=== PATIENT | male | born 1940 | race Caucasian/White ===

== ENCOUNTER 2023-05-01 18:24 | Inpatient (IN) | payer OTHER, SELFPAY ==
--- NOTE | ~2023-05-01 | XR_ITS ---
EXAM: XR hip LT 2V w AP pelvis DATE: 05/01/2023 18:55 HISTORY: Fall, Possible Fracture From Outside Hosptial . COMPARISON: None available. FINDINGS: Normal mineralization. Minimally displaced left femoral neck fracture. No lytic or blastic lesion. Lumbar degenerative disc disease. Mild degenerative change in the bilateral hips and pubic s ymphysis. Pelvic calcification, possible calcified diverticulum. No erosion or periosteal change. Sof t tissues within normal limits. IMPRESSION: Minimally displaced left femoral neck fracture. Reviewed, dictated and finalized at location K.
--- NOTE | ~2023-05-01 | XR_ITS ---
EXAM: XR hip LT min 2V DATE: 05/04/2023 15:27 HISTORY: POST OP . COMPARISON: 05/01/2023. FINDINGS/IMPRESSION: Expected postsurgical changes, status post left hip arthroplasty placement, with no radiographic evidence of procedure or hardware related complication. Reviewed, dictated and finalized at location K.
--- NOTE | ~2023-05-01 | XR_ITS ---
EXAMINATION: XR chest 1V portable Exam Date/Time: 05/01/2023 18:45 CDT HISTORY: surgery? Comparison: None. RESULT: Lines, tubes, and devices: None. Lungs and pleura: Senescent change. Low volumes with crowding. Streaky bibasilar atelectasis/scar. Cardiomediastinal silhouette: Unremarkable. Other: No acute osseous or upper abdominal finding. IMPRESSION: No acute cardiopulmonary process. Reviewed, dictated and finalized at location K.
[2023-05-01 18:37] VITALS: BP 149/77; PULSE 88; RESP 16; TEMP 36.6; O2SAT 98
--- NOTE | 2023-05-01 18:40 | ECG_ITS ---
Measurements Intervals [place] Rate: 72 P: 46 [place]: 205 QRS: -33 QRSD: 111 T: -21 QT: 360 QTc: 395 Interpretive Statements SINUS RHYTHM LEFT AXIS DEVIATION INTRAVENTRICULAR CONDUCTION DELAY LEFT VENTRICULAR HYPERTROPHY AND ST-T CHANGE BORDERLINE T WAVE ABNORMALITY- INFERIOR LEADS BASELINE ARTIFACT- I, II, III, AVR, AVL, V1 BORDERLINE ECG NO PREVIOUS ECG AVAILABLE FOR COMPARISON Electronically Signed On 05-02-2023 6:57:29 CDT by Pedro Aguilar D.O.
[2023-05-01 18:55] LABS: Basophils Percent Auto 0.1 % (0.2-1.2); Eosinophils Absolute Auto 0.2 K/mm3 (0-0.3); Eosinophils Percent Auto 1.3 % (0-4.4); Hematocrit 40.2 % (42.0-52.0); Immature Granulocyte Percent A 0.7 % (0-0.5); Lymphocytes Absolute Auto 2.33 K/mm3 (0.9-3.2); Lymphocytes Percent Auto 17.1 % (18.3-44.2); Mean Corpuscular HGB Conc 32.3 g/dl (32-36); Mean Corpuscular Hemoglobin 31.1 pg (26-34); Mean Corpuscular Volume 96.2 fl (80-100); Mean Platelet Volume 10.3 fl (7.4-10.4); Monocytes Absolute Auto 0.9 K/mm3 (0.1-0.6); Monocytes Percent Auto 6.3 % (2.6-8.5); Neutrophils Absolute Auto 10.1 K/mm3 (1.3-6.7); Neutrophils Percent Auto 74.5 % (45.5-73.1); Platelet Count Result 242 k/mm3 (150-375); Red Blood Count 4.18 M/mm3 (4.6-6.20); Red Cell Distribution Width 13.9 % (11.5-14.5); White Blood Count 13.6 K/mm3 (4.5-10.0)
[2023-05-01 19:02] LABS: Alanine Aminotransferase 24 U/L (6-50); Alkaline Phosphatase 99 U/L (38-126); Anion Gap 5 mmol/L (8-16); Aspartate Amino Transferase 23 U/L (17-59); Bilirubin,Total 0.7 mg/dL (0.2-1.3); Blood Urea Nitrogen 23 mg/dL (9-20); Calcium 9.1 mg/dL (8.4-10.2); Carbon Dioxide 27 mmol/L (22-30); Chloride 109 mmol/L (98-107); Estimated CRCL calculation 35 ml/min; Estimated Glomerular Filt Rate 45; Glucose 107 mg/dL (65-110); Potassium 4.6 mmol/L (3.4-5.0); Sodium 141 mmol/L (137-145)
[2023-05-01 19:09] LABS: INR 1.1; Partial Thromboplastin Time 34.7 SECONDS (22.3-36.8); Prothrombin Time 14.3 Seconds (11.1-14.7)
--- NOTE | 2023-05-01 19:09 | ED.LOWEXIN ---
HPI - Extremity Injury (Lower) General Chief Complaint: Extremity Injury, Lower Stated Complaint: hip fracture Time Seen by Provider: 05/01/23 18:57 History of Present Illness HPI Narrative: This is an 82-year-old male, with past history of coronary artery disease and A-fib status post ablation, on Plavix, who presents emergency department with left hip pain and fracture. Patient states he was in [place] this morning at 9:00, when he tripped on a curb, landing on the right hip with immediate pain. He attempted to stand, heard a pop and felt severe pain the patient was seen in an outside hospital, but wanted to be treated here as it is close to home. He complains of 4/10 dull pain, increasing to 7/10 and becoming sharp with movement. He denies preceding chest pain, palpitations or shortness of breath and has not had any symptoms. Related Data Home Medications Medication Instructions Recorded Confirmed Adult Low Dose Aspirin 81 mg PO DAILY 05/01/23 05/01/23 B12 1,000 mcg PO DAILY 05/01/23 05/01/23 PreserVision AREDS-2 1 tablet PO BID 05/01/23 05/01/23 allopurinol 300 mg PO DAILY 05/01/23 05/01/23 atorvastatin 40 mg PO QPM 05/01/23 05/01/23 clopidogrel 75 mg PO DAILY 05/01/23 05/01/23 lisinopril 5 mg PO DAILY 05/01/23 05/01/23 tamsulosin 0.4 mg PO QPM 05/01/23 05/01/23 Allergies Allergy/AdvReac Type Severity Reaction Status Date / Time No Known Allergies Allergy Verified 05/01/23 21:07 Review of Systems Review of Systems: CONSTITUTIONAL: Denies fever, chills, or sweats. CARDIOVASCULAR: Denies chest pain, palpitations, or edema. RESPIRATORY: Denies cough or dyspnea. GASTROINTESTINAL: Denies abdominal pain, nausea, vomiting, or diarrhea. GENITOURINARY: Denies dysuria or hematuria. SKIN: Denies rash or itching. MUSCULOSKELETAL: Left hip pain denies back pain, or myalgia. NEUROLOGIC: Denies headache, numbness, dizziness, or weakness. PSYCHIATRIC: Denies anxiety or depression. [facility] Past Medical History Medical History (Updated 05/01/23 @ 22:55 by Matt Lozano MD) A-fib B12 deficiency BPH (benign prostatic hyperplasia) Coronary artery disease Essential hypertension Gout Kidney stones Surgical History Surgical History (Updated 05/01/23 @ 22:13 by Angelica Reich DO) History of bilateral knee replacement Right in 2013 left in 2013 Status post ablation of atrial fibrillation Status post cataract extraction of both eyes with insertion of intraocular lens Family History Family History Mother Macular degeneration Social History Social History (Updated 05/01/23 @ 22:16 by Angelica Reich DO) Social History: Patient has been since 1962. He and his had 3 children. He is a lifelong nonsmoker. He used to drink at least a moderate amount but quit drinking 41 years ago. He denies any illicit substance use. 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 He officially retired September 2021. Code status: Full code (he would not want to be on a ventilator long-term, have a tracheostomy or a PEG tube) initially patient stated he wanted to be a do not intubate but he would allow CPR but after further discussion he states he would be a full code. Surrogate decision maker: Екатерина () Smoking status: Never smoker Alcohol intake: never Substance use: never Lack of Transportation: No Lack of Food: Never True Current Housing: I Have Housing Concerned About Future Housing: No Difficulty Paying Gas/Electric Bills: No Difficulty Paying for Meds: No Currently Unemployed: No Education: Bachelor's Degree Difficulty w/ Childcare or Family Care: No Spiritual care concerns: No Exam Narrative: GENERAL: Well-developed, well-nourished, and in no acute distress. HEAD: Normocephalic, atraumatic. EYES: PERRLA and EOMI. ENT
--- NOTE | 2023-05-01 19:15 | PC.NURSE ---
Assumed care of pt from JOHN Irving at this time.
[2023-05-01] MEDS: MORPHINE SULFATE (*CRX) 4 MG/ML INJ IV PUSH (19:35)
[2023-05-01] MEDS: ONDANSETRON INJ 4 MG/2 ML VIAL IV PUSH (19:35)
[2023-05-01 21:00] VITALS: O2SAT 97; BMI 26.9
--- NOTE | 2023-05-01 21:00 | ADMGEN ---
This patient, Marcelino Moore, was admitted to 2 Medical Room 240-. Patient/family oriented to hospital policies and general routines including ID bracelet, bed and alarms, visiting hours, pain management, procedures, bathroom and other care routines, personal items, smoking policy, room service/diet, and visiting hours. Information on how to activate the Rapid Response Team has been discussed. Patient/Family are encouraged to report perceived risks to care and to ask questions if they do not understand what they are told or what they should do.
[2023-05-01 21:06] VITALS: BP 145/72; PULSE 92; RESP 16; TEMP 37.1; O2SAT 97
--- NOTE | 2023-05-01 21:13 | PM.IMHP ---
H&P: HPI History of Present Illness Date/Time: 05/01/23 21:13 Chief Complaint: Left hip fracture Narrative: 82-year-old male with past medical history of atrial fibrillation status post cardiac ablation and coronary artery disease who presented to the ER via private vehicle after leaving the hospital in [place] against medical advice with a hip fracture. The patient reported that he and had both of his knee replacements done by Dr. Toi Manzo in 2012 and 2013. He decided to leave the hospital in order to have his procedures performed locally. He reports that he was walking with some friends when he tripped and fell. When he landed he landed over the edge of the curb. He was initially able to stand up with assistance but when he stood up he felt a pop and his pain escalated to a 25/10 in intensity. He reports that he was given pain medications at the outside ER and he rode in the back of the pickup truck from [place] down to our ER. X-rays performed here demonstrated a displaced left femoral neck fracture. He reports that his pain is currently a 4/10 in intensity as long as he does not move. EKG demonstrated evidence of old NM. The patient reported he had a myocardial infarction in 2018 and had 2 stents placed in the same vessel. His websphere commerce architect is Dr. Sotelo at [facility]. He follows up routinely. He has not been having any chest pain, palpitations, shortness of breath or paroxysmal nocturnal dyspnea. Denies any lower extremity swelling. He usually ambulates without assistance. He does have a history of atrial fibrillation status post ablation in 2019 he has not had a recurrence of his AFib. He last took his Plavix on the morning of the . He has not taken his medications today because he fell just after eating breakfast when he would usually take his medications. He did not have any loss of consciousness and did not hit his head. He does have a small skin tear to his left lateral upper arm which is blood through the dressing. He does have a history of BPH in associated urinary frequency. He he denies any incomplete bladder emptying or dysuria. He has not had any hematochezia melena or hematuria. Review of Systems Review of Systems: 12 systems were reviewed with pertinent positives and negatives per HPI. Except as documented in the HPI, all other systems were reviewed and are negative. [facility] Past Medical History Medical History (Updated 05/01/23 @ 22:19 by Angelica Reich DO) A-fib B12 deficiency BPH (benign prostatic hyperplasia) Coronary artery disease Essential hypertension Gout Kidney stones Surgical History Surgical History (Updated 05/01/23 @ 22:13 by Angelica Reich DO) History of bilateral knee replacement Right in 2013 left in 2013 Status post ablation of atrial fibrillation Status post cataract extraction of both eyes with insertion of intraocular lens Family History Family History Mother Macular degeneration Social History Social History (Updated 05/01/23 @ 22:16 by Angelica Reich DO) Social History: Patient has been since 1962. He and his had 3 children. He is a lifelong nonsmoker. He used to drink at least a moderate amount but quit drinking 41 years ago. He denies any illicit substance use. 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 Code status: Full code (he would not want to be on a ventilator long-term, have a tracheostomy or a PEG tube) initially patient stated he wanted to be a do not intubate but he would allow CPR but after further discussion he states he would be a full code. Surrogate decision maker: Екатерина () Smoking status: Never smoker Alcohol intake: never Substance use: never Lack of Transportation: No Lack of Food: Never True Cam[place]
[2023-05-02] MEDS: MORPHINE SULFATE (*CRX) 4 MG/ML INJ IV PUSH ×2 (03:40→13:16)
[2023-05-02 04:44] LABS: Basophils Percent Auto 0.3 % (0.2-1.2); Eosinophils Absolute Auto 0.4 K/mm3 (0-0.3); Hematocrit 34.8 % (42.0-52.0); Hemoglobin 11.3 g/dL (14.0-18.0); Immature Granulocyte Absolute 0.04 K/mm3 (0.00-0.031); Immature Granulocyte Percent A 0.4 % (0-0.5); Lymphocytes Absolute Auto 1.45 K/mm3 (0.9-3.2); Lymphocytes Percent Auto 14.2 % (18.3-44.2); Mean Corpuscular HGB Conc 32.5 g/dl (32-36); Mean Corpuscular Hemoglobin 31.2 pg (26-34); Mean Corpuscular Volume 96.1 fl (80-100); Mean Platelet Volume 10.6 fl (7.4-10.4); Monocytes Absolute Auto 0.9 K/mm3 (0.1-0.6); Neutrophils Absolute Auto 7.3 K/mm3 (1.3-6.7); Neutrophils Percent Auto 72.1 % (45.5-73.1); Platelet Count Result 227 k/mm3 (150-375); Red Blood Count 3.62 M/mm3 (4.6-6.20); Red Cell Distribution Width 13.8 % (11.5-14.5); White Blood Count 10.2 K/mm3 (4.5-10.0)
[2023-05-02 04:58] LABS: Anion Gap 4 mmol/L (8-16); Blood Urea Nitrogen 20 mg/dL (9-20); Calcium 8.6 mg/dL (8.4-10.2); Carbon Dioxide 26 mmol/L (22-30); Chloride 108 mmol/L (98-107); Estimated CRCL calculation 35 ml/min; Estimated Glomerular Filt Rate 45; Glucose 103 mg/dL (65-110); Sodium 138 mmol/L (137-145)
[2023-05-02 05:34] VITALS: BP 132/63; PULSE 80; RESP 14; TEMP 36.7; O2SAT 91
[2023-05-02] MEDS: OPTI-GEN TAB 1 TABLET PO ×2 (08:13→17:25)
[2023-05-02] MEDS: lisinopriL 5 MG TABLET PO (08:13)
[2023-05-02] MEDS: allopurinoL 300 MG TABLET BY MOUTH (08:13)
[2023-05-02] MEDS: ASPIRIN 81 MG CHEWABLE TABLET PO (09:54)
--- NOTE | 2023-05-02 10:22 | PM.IMPN ---
Progress Note: A&P Assessment and Plan (1) Left displaced femoral neck fracture: Code(s): S72.002A - Fracture of unspecified part of neck of left femur, initial encounter for closed fracture Status: Acute (2) BPH (benign prostatic hyperplasia): Qualifiers: Lower urinary tract symptom presence: symptoms present Lower urinary tract symptom detail: urinary frequency Qualified Code(s): N40.1 - Benign prostatic hyperplasia with lower urinary tract symptoms; R35.0 - Frequency of micturition Code(s): N40.0 - Benign prostatic hyperplasia without lower urinary tract symptoms Status: Acute (3) Coronary artery disease: Qualifiers: Coronary Disease-Associated Artery/Lesion type: [place] artery [place] vs. transplanted heart: [place] heart Associated angina: without angina Qualified Code(s): I25.10 - Atherosclerotic heart disease of [place] coronary artery without angina pectoris Code(s): I25.10 - Atherosclerotic heart disease of [place] coronary artery without angina pectoris Status: Acute (4) Essential hypertension: Code(s): I10 - Essential (primary) hypertension Status: Acute Plan Patient has a displaced left femoral neck fracture. Orthopedic surgery has been consulted. Pain medications with morphine and nausea medications with Zofran have been provided. Patient does have a history of coronary artery disease but is asymptomatic. Patient has not had his Plavix since the morning of the . Patient is not having any cardiac symptoms that would preclude performing procedure. What I would continue the patient's home statin therapy. Patient's Plavix is on hold and will be resumed once okay with Surgical Service. I would continue the patient's home antihypertensives and monitor blood pressure closely. I will continue the patient's home Flomax for his BPH. Will monitor urine output closely. Patient may need Ford catheter with use of pain medications and immobility as he may be at increased risk of urinary retention. Will monitor closely. Patient has been admitted to inpatient status and will require greater than 2 midnight stay for treatment of his hip fracture. Subjective Date/time seen: 05/02/23 10:22 Interval history: No complaints Exam Narrative: Weight 82.5 kg BMI 26.9 Const: Other: No acute distress, well-developed well-nourished, appears younger than stated age HENMT: Other: Good dentition, mucous membranes are tacky, no oral pharyngeal erythema, lips are dry and peeling Eyes: Other: Pupils are equal and reactive, no scleral icterus, no conjunctival pallor Neck: Other: No JVD, no lymphadenopathy, trachea midline Resp: Other: Clear to auscultation bilaterally, no increased work of breathing Cardio: Other: Regular rate, regular rhythm, 2+ bilateral radial pedal pulses, no murmur GI: Other: Soft, nontender, nondistended, hyperactive bowel sounds, no organomegaly Skin: Other: Skin tear to left upper arm with moderate amount of bleeding see please see nursing documentation for measurements is no more than 2 cm by 8 cm in length Neuro: Other: Alert oriented x4, speech is clear, no facial asymmetry, no localizing neurologic deficits noted during casual conversation Extrem: Other: Left lower extremity is externally rotated and shortened, extremity is neurovascularly intact distally Psych: Other: Appropriate mood and affect, pleasant and cooperative, judgment and insight intact Objective Data Vital Signs Vital Signs: Vital Signs - 24 hr 05/01/23 18:37 05/01/23 21:06 05/01/23 21:00 Temperature 97.8 F 98.8 F Pulse Rate 88 92 Respiratory Rate 16 16 Blood Pressure 149/77 H 145/72 H Pulse Oximetry 98 97 97 Oxygen Delivery Room Air 05/02/23 05:34 Temperature 98.1 F Pulse Rate 80 Respiratory Rate 14 Blood Pressure 132/63 Pulse Oximetry 91 Oxygen Delivery
[2023-05-02 13:35] VITALS: BP 113/66; PULSE 83; RESP 12; TEMP 36.7; O2SAT 92
[2023-05-02] MEDS: TAMSULOSIN HCL 0.4 MG CAPSULE PO (17:25)
[2023-05-02] MEDS: ATORVASTATIN 40 MG TABLET PO (17:25)
[2023-05-02 22:16] VITALS: BP 134/71; PULSE 95; RESP 18; TEMP 36.8; O2SAT 93
[2023-05-03] VITALS: BP 128/61; PULSE 94; RESP 18; TEMP 36.7; O2SAT 93
[2023-05-03 06:00] VITALS: BP 123/72; PULSE 94; RESP 18; TEMP 36.7; O2SAT 95
[2023-05-03 08:34] VITALS: O2SAT 95
--- NOTE | 2023-05-03 10:02 | PM.IMPN ---
Progress Note: A&P Assessment and Plan (1) Left displaced femoral neck fracture: Code(s): S72.002A - Fracture of unspecified part of neck of left femur, initial encounter for closed fracture Status: Acute (2) BPH (benign prostatic hyperplasia): Qualifiers: Lower urinary tract symptom presence: symptoms present Lower urinary tract symptom detail: urinary frequency Qualified Code(s): N40.1 - Benign prostatic hyperplasia with lower urinary tract symptoms; R35.0 - Frequency of micturition Code(s): N40.0 - Benign prostatic hyperplasia without lower urinary tract symptoms Status: Acute (3) Coronary artery disease: Qualifiers: Coronary Disease-Associated Artery/Lesion type: [place] artery [place] vs. transplanted heart: [place] heart Associated angina: without angina Qualified Code(s): I25.10 - Atherosclerotic heart disease of [place] coronary artery without angina pectoris Code(s): I25.10 - Atherosclerotic heart disease of [place] coronary artery without angina pectoris Status: Acute (4) Essential hypertension: Code(s): I10 - Essential (primary) hypertension Status: Acute Plan Patient has a displaced left femoral neck fracture. Orthopedic surgery has been consulted. Pain medications with morphine and nausea medications with Zofran have been provided. Patient does have a history of coronary artery disease but is asymptomatic. Patient has not had his Plavix since the morning of the . Patient is not having any cardiac symptoms that would preclude performing procedure. What I would continue the patient's home statin therapy. Patient's Plavix is on hold and will be resumed once okay with Surgical Service. I would continue the patient's home antihypertensives and monitor blood pressure closely. I will continue the patient's home Flomax for his BPH. Will monitor urine output closely. Patient may need Ford catheter with use of pain medications and immobility as he may be at increased risk of urinary retention. Will monitor closely. Patient has been admitted to inpatient status and will require greater than 2 midnight stay for treatment of his hip fracture. Subjective Date/time seen: 05/03/23 10:02 Interval history: No Complaints Exam Narrative: Weight 82.5 kg BMI 26.9 Const: Other: No acute distress, well-developed well-nourished, appears younger than stated age HENMT: Other: Good dentition, mucous membranes are tacky, no oral pharyngeal erythema, lips are dry and peeling Eyes: Other: Pupils are equal and reactive, no scleral icterus, no conjunctival pallor Neck: Other: No JVD, no lymphadenopathy, trachea midline Resp: Other: Clear to auscultation bilaterally, no increased work of breathing Cardio: Other: Regular rate, regular rhythm, 2+ bilateral radial pedal pulses, no murmur GI: Other: Soft, nontender, nondistended, hyperactive bowel sounds, no organomegaly Skin: Other: Skin tear to left upper arm with moderate amount of bleeding see please see nursing documentation for measurements is no more than 2 cm by 8 cm in length Neuro: Other: Alert oriented x4, speech is clear, no facial asymmetry, no localizing neurologic deficits noted during casual conversation Extrem: Other: Left lower extremity is externally rotated and shortened, extremity is neurovascularly intact distally Psych: Other: Appropriate mood and affect, pleasant and cooperative, judgment and insight intact Objective Data Vital Signs Vital Signs: Vital Signs - 24 hr 05/02/23 13:35 05/02/23 22:16 05/03/23 00:00 Temperature 98.0 F 98.3 F 98.1 F Pulse Rate 83 95 94 Respiratory Rate 12 18 18 Blood Pressure 113/66 134/71 128/61 Pulse Oximetry 92 93 93 Oxygen Delivery 05/02/23 20:25 05/03/23 06:00 05/03/23 08:34 Temperature 98.0 F Pulse Rate 94 Respiratory Rate 18 Blood Pressure 123
[2023-05-03] MEDS: oxyCODONE/ACETAMINOPHEN (*CRX) 5-325 MG TABLET PO (11:31)
[2023-05-03] MEDS: lisinopriL 5 MG TABLET PO (11:36)
[2023-05-03] MEDS: allopurinoL 300 MG TABLET BY MOUTH (11:36)
[2023-05-03] MEDS: ASPIRIN 81 MG CHEWABLE TABLET PO (11:36)
[2023-05-03] MEDS: OPTI-GEN TAB 1 TABLET PO ×2 (11:37→17:36)
[2023-05-03 14:26] VITALS: BP 126/71; PULSE 83; RESP 18; TEMP 36.7; O2SAT 97
[2023-05-03] MEDS: ARTIFICIAL TEARS OPHTH SOLN 15 ML BOTTLE 1 DROP EACH EYE (15:45)
[2023-05-03] MEDS: TAMSULOSIN HCL 0.4 MG CAPSULE PO (17:37)
[2023-05-03] MEDS: ATORVASTATIN 40 MG TABLET PO (17:37)
--- NOTE | 2023-05-03 17:38 | PM.CNOR ---
Assessment and Plan Assessment and plan (1) Left displaced femoral neck fracture: Code(s): S72.002A - Fracture of unspecified part of neck of left femur, initial encounter for closed fracture Status: Acute Assessment and Plan: NATHALIE IS HERE FOR LEFT FEMORAL NECK FRACTURE TREATMENT. WE DISCUSSED HIS OPTIONS AND THE BEST OPTION WOULD BE FOR LEFT MORRIS ARTHROPLASTY. DISCUSSED NONOPERATIVE AND OPERATIVE TREATMENT OPTIONS WITH THE PATIENT. THE PATIENT'S QUESTIONS WERE ANSWERED. THE PATIENT DESIRES OPERATIVE TREATMENT. DISCUSSED ___LEFT HIP BIPOLAR . RISKS OF SURGERY INCLUDING BUT NOT LIMITED TO NEUROVASCULAR DAMAGE, WOUND COMPLICATIONS, BLOOD CLOT, PULMONARY EMBOLUS, STROKE, VA, ANESTHETIC RISKS UP TO AND INCLUDING WERE REVIEWED. CONTINUED PAIN AND POSSIBLE DYSFUNCTION WERE EXPLAINED. NO GUARANTEES WERE OFFERED. THE PATIENT UNDERSTANDS AND WISHES TO PROCEED. History of Present Illness HPI Consult date: 05/03/23 Chief complaint: Right femur fracture Narrative: NATHALIE WAS ADMITTED TO THE ED AND THEN TO THE MEDICAL SERVICE AFTER FALLING AND SUSTAINING A FEMORAL NECK FRACTURE OF THE LEFT FEMUR. HE DENIES ANY OTHER EXTREMITY PAIN. HE DENIES ANY LOC OR SOB. HE IS ON PLAVIX WHICH HAS BEEN HELD NOW SINCE WEDNESDAY. HISTORY, EXAM AND RADIOGRAPHS REVIEWED WITH THE PATIENT. REFERRING PHYSICIAN RECORDS AND IMAGES REVIEWED. CONDITION, NATURE, ETIOLOGY AND COURSE OF NATURAL HISTORY REVIEWED. CONSERVATIVE AND OPERATIVE TREATMENT OPTIONS REVIEWED WELL THE RISKS AND BENEFITS OF EACH. [facility] Past Medical History Medical History A-fib B12 deficiency BPH (benign prostatic hyperplasia) Coronary artery disease Essential hypertension Gout Kidney stones Surgical History Surgical History History of bilateral knee replacement Right in 2012 left in 2013 Status post ablation of atrial fibrillation Status post cataract extraction of both eyes with insertion of intraocular lens Family History Family History Mother Macular degeneration Social History Social History Social History: Patient has been since 1962. He and his had 3 children. He is a lifelong nonsmoker. He used to drink at least a moderate amount but quit drinking 41 years ago. He denies any illicit substance use. 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 Code status: Full code (he would not want to be on a ventilator long-term, have a tracheostomy or a PEG tube) initially patient stated he wanted to be a do not intubate but he would allow CPR but after further discussion he states he would be a full code. Surrogate decision maker: Екатерина () Smoking status: Never smoker Alcohol intake: never Substance use: never Lack of Transportation: No Lack of Food: Never True Current Housing: I Have Housing Concerned About Future Housing: No Difficulty Paying Gas/Electric Bills: No Difficulty Paying for Meds: No Currently Unemployed: No Education: Bachelor's Degree Difficulty w/ Childcare or Family Care: No Spiritual care concerns: No Meds Home Medications and Allergies Home Medications Medication Instructions Recorded Confirmed Type Adult Low Dose Aspirin 81 mg PO DAILY 05/01/23 05/01/23 History B12 1,000 mcg PO DAILY 05/01/23 05/01/23 History PreserVision AREDS-2 1 tablet PO BID 05/01/23 05/01/23 History allopurinol 300 mg PO DAILY 05/01/23 05/01/23 History atorvastatin 40 mg PO QPM 05/01/23 05/01/23 History clopidogrel 75 mg PO DAILY 05/01/23 05/01/23 History lisinopril 5 mg PO DAILY 05/01/23 05/01/23 History tamsulosin 0.4 mg PO QPM 05/01/23 09
[2023-05-03 19:19] VITALS: BP 125/64; PULSE 90; RESP 18; TEMP 36.7; O2SAT 95
[2023-05-04] VITALS (17 sets, daily range): BP systolic 76–183; BP diastolic 47–76; PULSE 75–108; RESP 14–18; TEMP 36.2–37.4; O2SAT 90–100
[2023-05-04] MEDS: OPTI-GEN TAB 1 TABLET PO ×2 (09:54→17:12)
[2023-05-04] MEDS: lisinopriL 5 MG TABLET PO (09:55)
[2023-05-04] MEDS: allopurinoL 300 MG TABLET BY MOUTH (09:55)
[2023-05-04] MEDS: ARTIFICIAL TEARS OPHTH SOLN 15 ML BOTTLE 1 DROP EACH EYE (09:57)
--- NOTE | 2023-05-04 10:46 | PM.IMPN ---
Progress Note: A&P Assessment and Plan (1) Left displaced femoral neck fracture: Code(s): S72.002A - Fracture of unspecified part of neck of left femur, initial encounter for closed fracture Status: Acute (2) BPH (benign prostatic hyperplasia): Qualifiers: Lower urinary tract symptom presence: symptoms present Lower urinary tract symptom detail: urinary frequency Qualified Code(s): N40.1 - Benign prostatic hyperplasia with lower urinary tract symptoms; R35.0 - Frequency of micturition Code(s): N40.0 - Benign prostatic hyperplasia without lower urinary tract symptoms Status: Acute (3) Coronary artery disease: Qualifiers: Coronary Disease-Associated Artery/Lesion type: [place] artery [place] vs. transplanted heart: [place] heart Associated angina: without angina Qualified Code(s): I25.10 - Atherosclerotic heart disease of [place] coronary artery without angina pectoris Code(s): I25.10 - Atherosclerotic heart disease of [place] coronary artery without angina pectoris Status: Acute (4) Essential hypertension: Code(s): I10 - Essential (primary) hypertension Status: Acute Plan Patient has a displaced left femoral neck fracture. Orthopedic surgery plans to go to the OR today. Patient does have a history of coronary artery disease but is asymptomatic. No cp, no sob, ok to proceed with surgery. I will continue the patient's home Flomax for his BPH. Will monitor urine output closely. Patient may need Ford catheter with use of pain medications and immobility as he may be at increased risk of urinary retention. Will monitor closely. Patient has been admitted to inpatient status and will require greater than 2 midnight stay for treatment of his hip fracture. Subjective Date/time seen: 05/04/23 10:46 Interval history: No complaints Exam Narrative: Weight 82.5 kg BMI 26.9 Const: Other: No acute distress, well-developed well-nourished, appears younger than stated age HENMT: Other: Good dentition, mucous membranes are tacky, no oral pharyngeal erythema, lips are dry and peeling Eyes: Other: Pupils are equal and reactive, no scleral icterus, no conjunctival pallor Neck: Other: No JVD, no lymphadenopathy, trachea midline Resp: Other: Clear to auscultation bilaterally, no increased work of breathing Cardio: Other: Regular rate, regular rhythm, 2+ bilateral radial pedal pulses, no murmur GI: Other: Soft, nontender, nondistended, hyperactive bowel sounds, no organomegaly Skin: Other: Skin tear to left upper arm with moderate amount of bleeding see please see nursing documentation for measurements is no more than 2 cm by 8 cm in length Neuro: Other: Alert oriented x4, speech is clear, no facial asymmetry, no localizing neurologic deficits noted during casual conversation Extrem: Other: Left lower extremity is externally rotated and shortened, extremity is neurovascularly intact distally Psych: Other: Appropriate mood and affect, pleasant and cooperative, judgment and insight intact Objective Data Vital Signs Vital Signs: Vital Signs - 24 hr 05/03/23 14:26 05/03/23 19:19 05/04/23 00:00 Temperature 98.0 F 98.1 F 97.6 F Pulse Rate 83 90 95 Respiratory Rate 18 18 18 Blood Pressure 126/71 125/64 128/67 Pulse Oximetry 97 95 93 Oxygen Delivery 05/03/23 20:35 05/04/23 05:56 05/04/23 09:00 Temperature 97.8 F Pulse Rate 78 Respiratory Rate 18 Blood Pressure 133/75 Pulse Oximetry 95 Oxygen Delivery Room Air Room Air Intake/Output Intake/Output: Intake & Output 05/01/23 05/02/23 05/03/23 05/04/23 23:59 23:59 23:59 23:59 Intake Total 1480 1030 300 Output Total 300 525 300 478 Balance -300 025 730 178 Meds/Results Medications: Active Medications Generic Name Dose Route Start Last Admin Trade Name Freq PRN Reason Stop Dose Admin Acet
[2023-05-04] MEDS: LACTATED RINGERS 1,000 ML 30 ML IV CONT ×2 (11:00→15:05)
[2023-05-04] MEDS: ACETAMINOPHEN 500 MG TABLET 1000 MG PO (11:15)
--- NOTE | 2023-05-04 11:17 | WPDHPUPDATE1 ---
History and Physical Update Update Date/Time: 05/04/23 11:17 History and Physical has been reviewed, including an updated exam of the patient. There are NO changes in the patient's condition. Risks, benefits, and alternatives have been discussed and questions answered. Patient agrees to proceed with procedure.
[2023-05-04] MEDS: TRANEXAMIC ACID 1,000MG/ISO100 1,000 MG/100 ML BAG 200 MG IVPB (11:30)
--- NOTE | 2023-05-04 12:00 | WPDANESEPPF ---
Anes - Initial Pre Proc Eval Procedure: Operation Date: 05/04/23 12:00 Proposed Procedures p Bipolar Left Hip Replacement - Toi Manzo MD Date/Time: 05/04/23 12:00 Surgeon: Angelica Reich DO Pre Op Diagnosis: LEFT FEMORAL NECK FRACTURE Patient Data Age: 83 Gender: M Height: 1.75 m Weight: 82.5 kg Last Vital Signs Temp 37.4 C 05/04/23 11:43 Pulse 75 05/04/23 11:43 Resp 14 05/04/23 11:43 BP 133/74 05/04/23 11:43 Pulse Ox 94 05/04/23 11:43 O2 Del Method Room Air 05/04/23 11:43 Allergies Allergy/AdvReac Type Severity Reaction Status Date / Time No Known Allergies Allergy Verified 05/04/23 11:47 Home Medications Medication Instructions Recorded Confirmed Type Adult Low Dose Aspirin 81 mg PO DAILY 05/01/23 05/01/23 History B12 1,000 mcg PO DAILY 05/01/23 05/01/23 History PreserVision AREDS-2 1 tablet PO BID 05/01/23 05/01/23 History allopurinol 300 mg PO DAILY 05/01/23 05/01/23 History atorvastatin 40 mg PO QPM 05/01/23 05/01/23 History clopidogrel 75 mg PO DAILY 05/01/23 05/01/23 History lisinopril 5 mg PO DAILY 05/01/23 05/01/23 History tamsulosin 0.4 mg PO QPM 05/01/23 05/01/23 History peg 400-propylene glycol 0.4 %-0.3 1 drp EACH EYE BID 05/03/23 05/03/23 History % eye drops (Systane Ultra) Patient hx anesthesia problems: none Family hx anesthesia problems: none Results Review: All pre-operative results and documents have been reviewed as part of the pre-operative evaluation. [facility] Past Medical History Medical History A-fib B12 deficiency BPH (benign prostatic hyperplasia) Coronary artery disease Essential hypertension Gout Kidney stones Surgical History Surgical History History of bilateral knee replacement Right in 2012 left in 2013 Status post ablation of atrial fibrillation Status post cataract extraction of both eyes with insertion of intraocular lens Family History Family History Mother Macular degeneration Social History Social History Social History: Patient has been since 1962. He and his had 3 children. He is a lifelong nonsmoker. He used to drink at least a moderate amount but quit drinking 41 years ago. He denies any illicit substance use. 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 He officially retired September 2021. Code status: Full code (he would not want to be on a ventilator long-term, have a tracheostomy or a PEG tube) initially patient stated he wanted to be a do not intubate but he would allow CPR but after further discussion he states he would be a full code. Surrogate decision maker: Екатерина () Smoking status: Never smoker Alcohol intake: never Substance use: never Lack of Transportation: No Lack of Food: Never True Current Housing: I Have Housing Concerned About Future Housing: No Difficulty Paying Gas/Electric Bills: No Difficulty Paying for Meds: No Currently Unemployed: No Education: Bachelor's Degree Difficulty w/ Childcare or Family Care: No Spiritual care concerns: No Anes - Eval Final PreProcedure Day of Procedure 05/04/23 12:00 Patient weight: overweight Heart: regular rate and rhythm Lungs: clear to auscultation Airway: Mallampati scale class II Neurological: alert and oriented Last oral intake: >/= 8 hours ASA classification: III Emergent: no Anesthetic plan: proceed Anesthesia type and monitoring: general ETT and standard monitoring Results Review: All pre-operative results and documents have been reviewed as part of the pre-operative evaluation. Informed Consent: The patient's anesthetic plan and its attendant risks and
[2023-05-04] MEDS: ceFAZolin 2 GM/D5W 50 ML 2 GM/50 ML BAG IVPB ×2 (12:15→21:58)
[2023-05-04] MEDS: TRANEXAMIC ACID 1,000 MG/10 ML AMPUL 1000 MG IV PUSH (13:59)
--- NOTE | 2023-05-04 15:15 | W.PM.PROC2 ---
Procedure Note - Detailed Date of Procedure 05/04/23 Pre-op Diagnosis LEFT FEMORAL NECK FRACTURE Post-op Diagnosis Same Procedure Performed LEFT HIP HEMIARTHROPLASTY WITH BIPOLAR PROSTHESIS Surgeon Toi Manzo MD Anesthesia General Description of Procedure THE PATIENT WAS TAKEN TO THE OPERATING ROOM IN STABLE CONDITION. HE WAS PLACED IN THE LATERAL DECUBITUS AND THE LEFT LOWER EXTREMITY WAS PREPPED AND DRAPED IN THE STERILE FASHION. INCISION WAS MADE IN THE POSTERIOR LATERAL SIDE OF THE HIP, DOWN TO THE FASCIA LAYER. THE FASCIA WAS INCISED. THE HIP WAS EXPOSED. THE SHORT EXTERNAL ROTATORS WERE EXPOSED AND THERE WAS A LARGE HEMATOMA. THE CAPSULE WAS INCISED EXPOSING THE FRACTURE. THE FEMORAL HEAD WAS REMOVED. IT MEASURED 50 MM. AN OSTEOTOMY WAS MADE TO THE FEMORAL NECK ABOUT 1 CM PROXIMAL TO THE LESSER TROCHANTER. NEXT THE FEMUR WAS PREPARED WITH INITIAL CANAL FINDER THEN SEQUENTIAL REAMING UNTIL A #13 REAMER AND BROACHING TILL A #13 BROACH FIT WELL IN 15 OF ANTE VERSION. A +0 HIGH OFFSET NECK BIPOLAR TRIAL IN A 50 MM SHELL WAS PLACED. THE SHUCK TEST WAS EXCELLENT AND THE STABILITY IN FLEXION AND ROTATION WAS EXCELLENT. LEG LENGTHS WERE GROSSLY EQUAL. TRIALS WERE REMOVED. AN ECHO FRACTURE #13 PRESS FIT HIGH OFFSET STEM WAS PLACED IN 15 DEG OF ANTEVERSION. A +0 BIPOLAR HEAD NECK TRIAL WAS PLACED AGAIN. THE HIP WAS TRIALED AND THE STABILITY WAS EXCELLENT WERE THE LEG LENGTHS AND THE SHUCK TEST. NEXT A BIPOLAR HEAD NECK +0 IMPLANT WITH A 50 MM COBALT CHROME SHELL WAS PLACED AND TRIALED ONCE AGAIN SHOWING EXCELLENT STABILITY AND GROSSLY EQUAL LEG LENGTHS. THE WOUND WAS IRRIGATED WITH STERILE BETADINE AND WATER FOR 3 MIN. THEN WASHED AGAIN. THE CAPSULE AND THE EXTERNAL ROTATORS WERE APPROXIMATED WITH NUMBER 1 VICRYL. THE FASCIA WITH No 2 QUIL AND THE SUB CUTANEOUS LAYER WITH 2-0 ABSORBABLE SUTURE WITH A RUNNING 3-0 SUBCUTICULAR LAYER WELL. DERMABOND WAS PLACED AND STERILE DRESSING WAS APPLIED. PATIENT WAS PLACED BACK ON TO THE SUPINE POSITION AND WAS EXTUBATED. Estimated Blood Loss 500 Urine Output 3 Drains No Pathology None sent Complications No immediate complications Condition Stable Disposition PACU
[2023-05-04] MEDS: SENNA/DOCUSATE SODIUM TABLET 2 TAB PO (17:12)
[2023-05-04] MEDS: ATORVASTATIN 40 MG TABLET PO (17:12)
[2023-05-04] MEDS: TAMSULOSIN HCL 0.4 MG CAPSULE PO (17:12)
[2023-05-04] MEDS: SODIUM CHLORIDE 0.9% IV 1,000 ML 125 ML IV CONT (17:12)
[2023-05-04] MEDS: SODIUM CHLORIDE 0.9% IV 1,000 ML 999 ML IV CONT (20:45)
[2023-05-04] MEDS: FAMOTIDINE 20 MG TABLET PO (22:10)
[2023-05-04 22:27] LABS: Glucose Point of Care 219 mg/dl (65-105)
[2023-05-05] VITALS (9 sets, daily range): BP systolic 114–144; BP diastolic 64–76; PULSE 70–117; RESP 14–18; TEMP 36.6–37.1; O2SAT 93–100
[2023-05-05] MEDS: SODIUM CHLORIDE 0.9% IV 1,000 ML 125 ML IV CONT (04:45)
[2023-05-05] MEDS: ceFAZolin 2 GM/D5W 50 ML 2 GM/50 ML BAG IVPB ×2 (04:46→11:26)
[2023-05-05 05:34] LABS: Basophils Percent Auto 0.2 % (0.2-1.2); Hematocrit 33.3 % (42.0-52.0); Hemoglobin 10.5 g/dL (14.0-18.0); Immature Granulocyte Absolute 0.11 K/mm3 (0.00-0.031); Immature Granulocyte Percent A 0.6 % (0-0.5); Lymphocytes Absolute Auto 1.43 K/mm3 (0.9-3.2); Lymphocytes Percent Auto 7.2 % (18.3-44.2); Mean Corpuscular HGB Conc 31.5 g/dl (32-36); Mean Corpuscular Hemoglobin 31.5 pg (26-34); Mean Platelet Volume 10.7 fl (7.4-10.4); Monocytes Absolute Auto 1.8 K/mm3 (0.1-0.6); Monocytes Percent Auto 8.9 % (2.6-8.5); Neutrophils Absolute Auto 16.5 K/mm3 (1.3-6.7); Neutrophils Percent Auto 83.1 % (45.5-73.1); Platelet Count Result 204 k/mm3 (150-375); Red Blood Count 3.33 M/mm3 (4.6-6.20); Red Cell Distribution Width 13.5 % (11.5-14.5); White Blood Count 19.9 K/mm3 (4.5-10.0)
[2023-05-05 05:42] LABS: Sodium 137 mmol/L (137-145)
[2023-05-05 05:43] LABS: Anion Gap 10 mmol/L (8-16); Blood Urea Nitrogen 28 mg/dL (9-20); Calcium 8.1 mg/dL (8.4-10.2); Carbon Dioxide 20 mmol/L (22-30); Chloride 107 mmol/L (98-107); Estimated CRCL calculation 35 ml/min; Estimated Glomerular Filt Rate 45; Glucose 150 mg/dL (65-110); Potassium 5.3 mmol/L (3.4-5.0)
[2023-05-05] MEDS: ASPIRIN 81 MG CHEWABLE TABLET PO (08:56)
[2023-05-05] MEDS: SENNA/DOCUSATE SODIUM TABLET 2 TAB PO ×2 (08:56→16:33)
[2023-05-05] MEDS: OPTI-GEN TAB 1 TABLET PO ×2 (08:56→16:34)
[2023-05-05] MEDS: FAMOTIDINE 20 MG TABLET PO ×2 (08:57→20:06)
[2023-05-05] MEDS: CELECOXIB 200 MG CAPSULE PO (08:57)
[2023-05-05] MEDS: polyethylene glycoL 3350 17 GM POWD.PACK PO (08:57)
[2023-05-05] MEDS: CLOPIDOGREL BISULFATE 75 MG TABLET PO (08:57)
[2023-05-05] MEDS: lisinopriL 5 MG TABLET PO (08:57)
[2023-05-05] MEDS: CYANOCOBALAMIN 1,000 MCG TABLET 1000 MCG PO (08:57)
[2023-05-05] MEDS: allopurinoL 300 MG TABLET BY MOUTH (08:57)
--- NOTE | 2023-05-05 10:29 | PM.IMPN ---
Progress Note: A&P Assessment and Plan (1) Left displaced femoral neck fracture: Code(s): S72.002A - Fracture of unspecified part of neck of left femur, initial encounter for closed fracture Status: Acute (2) BPH (benign prostatic hyperplasia): Qualifiers: Lower urinary tract symptom presence: symptoms present Lower urinary tract symptom detail: urinary frequency Qualified Code(s): N40.1 - Benign prostatic hyperplasia with lower urinary tract symptoms; R35.0 - Frequency of micturition Code(s): N40.0 - Benign prostatic hyperplasia without lower urinary tract symptoms Status: Acute (3) Coronary artery disease: Qualifiers: Coronary Disease-Associated Artery/Lesion type: [place] artery [place] vs. transplanted heart: [place] heart Associated angina: without angina Qualified Code(s): I25.10 - Atherosclerotic heart disease of [place] coronary artery without angina pectoris Code(s): I25.10 - Atherosclerotic heart disease of [place] coronary artery without angina pectoris Status: Acute (4) Essential hypertension: Code(s): I10 - Essential (primary) hypertension Status: Acute Plan Patient has a displaced left femoral neck fracture. Status post open reduction internal fixation. PT OT consulted I will continue the patient's home medications May need rehab Subjective Date/time seen: 05/05/23 10:29 Interval history: Pain is much better at surgical site. Patient ambulating better Review of Systems Review of Systems: 12 systems were reviewed with pertinent positives and negatives per HPI. Except as documented in the HPI, all other systems were reviewed and are negative. Exam Narrative: Weight 82.5 kg BMI 26.9 Const: Other: No acute distress, well-developed well-nourished, appears younger than stated age HENMT: Other: Good dentition, mucous membranes are tacky, no oral pharyngeal erythema, lips are dry and peeling Eyes: Other: Pupils are equal and reactive, no scleral icterus, no conjunctival pallor Neck: Other: No JVD, no lymphadenopathy, trachea midline Resp: Other: Clear to auscultation bilaterally, no increased work of breathing Cardio: Other: Regular rate, regular rhythm, 2+ bilateral radial pedal pulses, no murmur GI: Other: Soft, nontender, nondistended, hyperactive bowel sounds, no organomegaly Skin: Other: Skin tear to left upper arm with moderate amount of bleeding see please see nursing documentation for measurements is no more than 2 cm by 8 cm in length Neuro: Other: Alert oriented x4, speech is clear, no facial asymmetry, no localizing neurologic deficits noted during casual conversation Extrem: Other: Left lower extremity is externally rotated and shortened, extremity is neurovascularly intact distally Psych: Other: Appropriate mood and affect, pleasant and cooperative, judgment and insight intact Objective Data Vital Signs Vital Signs: Vital Signs - 24 hr 05/04/23 11:43 05/04/23 15:10 05/04/23 15:25 Temperature 99.4 F 97.1 F L Pulse Rate 75 89 83 Pulse Rate [At Rest After Therapy Session] Respiratory Rate 14 16 14 Blood Pressure 133/74 174/76 H 163/73 H Pulse Oximetry 94 100 97 Pulse Oximetry [At Rest After Therapy Session] Oxygen Delivery Room Air Simple Face Mask Simple Face Mask Oxygen Flow Rate 8 8 05/04/23 15:40 05/04/23 15:55 05/04/23 16:15 Temperature Pulse Rate 86 100 94 Pulse Rate [At Rest After Therapy Session] Respiratory Rate 16 16 16 Blood Pressure 176/67 H 183/69 H 158/74 H Pulse Oximetry 98 93 94 Pulse Oximetry [At Rest After Therapy Session] Oxygen Delivery Simple Face Mask Nasal Cannula Nasal Cannula Oxygen Flow Rate 8 2 2 05/04/23 16:40 05/04/23 16:55 05/04/23 17:25 Temperature 97.9 F 97.7 F 97.7 F Pulse Rate 90 78 75 Pulse Rate [At Rest After Therapy Session] Respiratory Rate 17 1
--- NOTE | 2023-05-05 16:30 | PM.PNORT ---
Progress Note: A&P Assessment and Plan (1) Left displaced femoral neck fracture: Code(s): S72.002A - Fracture of unspecified part of neck of left femur, initial encounter for closed fracture Status: Acute Assessment and Plan: POD 1 DOING WELL HE HAS SLOW PROGRESS WITH PT. HE WILL MOST LIKELY BENNEFIT FROM SNF VS REHAB. CONTINUE PT FOR NOW. Subjective Subjective Date/Time Seen: 05/05/23 16:30 Interval history: POD 1 DOING WELL. PAIN CONTROLLED. NO CALF PAIN Exam Extrem: Other: VSS AFEBRILE DRESSING DRY NV INTACT NEG HOMANS SIGN, CALF SOFT NON TENDER, THIGH SOFT NON TENDER Objective Data Vital Signs Vital Signs: Vital Signs - 24 hr 05/04/23 16:40 05/04/23 16:55 05/04/23 17:25 Temperature 36.6 C 36.5 C 36.5 C Pulse Rate 90 78 75 Pulse Rate [At Rest After Therapy Session] Respiratory Rate 17 17 17 Blood Pressure 155/64 H 144/65 H 117/57 L Pulse Oximetry 97 100 99 Pulse Oximetry [At Rest After Therapy Session] Oxygen Delivery Oxygen Flow Rate 05/04/23 18:25 05/04/23 19:53 05/04/23 19:56 Temperature 36.4 C L 36.6 C Pulse Rate 79 101 H Pulse Rate [At Rest After Therapy Session] Respiratory Rate 18 17 Blood Pressure 110/60 76/47 L 81/50 L Pulse Oximetry 90 100 Pulse Oximetry [At Rest After Therapy Session] Oxygen Delivery Oxygen Flow Rate 05/04/23 20:39 05/04/23 22:00 05/05/23 02:12 Temperature 36.6 C 36.4 C 36.7 C Pulse Rate 86 108 H 109 H Pulse Rate [At Rest After Therapy Session] Respiratory Rate 17 17 17 Blood Pressure 101/52 L 124/67 144/76 H Pulse Oximetry 97 95 100 Pulse Oximetry [At Rest After Therapy Session] Oxygen Delivery Oxygen Flow Rate 05/04/23 20:50 05/05/23 05:38 05/05/23 08:15 Temperature 37.1 C Pulse Rate 108 H Pulse Rate [At Rest After Therapy Session] 117 H Respiratory Rate 18 Blood Pressure 140/64 Pulse Oximetry 97 96 Pulse Oximetry [At Rest After Therapy Session] 97 Oxygen Delivery Nasal Cannula Room Air Oxygen Flow Rate 2 05/05/23 09:49 05/05/23 08:57 05/05/23 10:12 Temperature 36.6 C Pulse Rate 70 Pulse Rate [At Rest After Therapy Session] Respiratory Rate 16 14 Blood Pressure 114/69 Pulse Oximetry 94 94 Pulse Oximetry [At Rest After Therapy Session] Oxygen Delivery Room Air Room Air Oxygen Flow Rate 05/05/23 14:00 Temperature 36.6 C Pulse Rate 100 Pulse Rate [At Rest After Therapy Session] Respiratory Rate 14 Blood Pressure 140/68 Pulse Oximetry 93 Pulse Oximetry [At Rest After Therapy Session] Oxygen Delivery Oxygen Flow Rate Intake/Output Intake/Output: Intake & Output 05/02/23 05/03/23 05/04/23 05/05/23 23:59 23:59 23:59 23:59 Intake Total 1480 1030 2110 1610 Output Total 525 300 731 Balance 416 712 4758 1610 Meds/Results Medications: Active Medications Generic Name Dose Route Start Last Admin Trade Name Freq PRN Reason Stop Dose Admin Acetaminophen 650 mg 05/04/23 16:27 Acetaminophen 325 Mg Tablet PO Q6H PRN Mild Pain (1-3) or Fever Hydrocodone Bitart/Acetaminophen 1 tab 05/04/23 16:27 Hydrocodone/Acetaminophen (*Crx) 7.5-325 Mg Tablet PO Q3H PRN Pain Rated 4-6 Hydrocodone Bitart/Acetaminophen 2 tab 05/04/23 16:27 Hydrocodone/Acetaminophen (*Crx) 5-325 Mg Tablet PO Q6H PRN Pain Rated 7-10 Allopurinol 300 mg 05/02/23 08:00 05/05/23 08:57 Allopurinol 300 Mg Tablet BY MOUTH 300 mg DAILY@0800 [facility] Administration Artificial Tears 1 drop 05/03/23 15:23 05/04/23 09:57 Artificial Tears Ophth Soln 15 Ml Bottle EACH EYE 1 drop QID PRN Administration Dry Eye(s) Aspirin 81 mg 05/02/23 08:00 05/05/23 08:56 Aspirin 81 Mg Chewable Tablet PO 81 mg DAILY@0800 [facility] Administration Atorvastatin Calcium 40 mg 05/01/23 22:15 05/04/23 17:12 Atorvastatin 40 Mg Tablet PO 40 mg QPM JESSE Administration Celecoxib 200 mg 05/05/23 08:00
[2023-05-05] MEDS: ATORVASTATIN 40 MG TABLET PO (17:03)
[2023-05-05] MEDS: TAMSULOSIN HCL 0.4 MG CAPSULE PO (17:03)
[2023-05-05] MEDS: HYDROcodone/acetaminophen (*CRX) 7.5-325 MG TABLET 1 TAB PO (20:06)
[2023-05-06] VITALS (7 sets, daily range): BP systolic 103–147; BP diastolic 58–66; PULSE 100–111; RESP 16–20; TEMP 36.4–37; O2SAT 91–96; BMI 10.0
[2023-05-06] MEDS: OPTI-GEN TAB 1 TABLET PO ×2 (08:50→17:34)
[2023-05-06] MEDS: CLOPIDOGREL BISULFATE 75 MG TABLET PO (08:50)
[2023-05-06] MEDS: ASPIRIN 81 MG CHEWABLE TABLET PO (08:50)
[2023-05-06] MEDS: CELECOXIB 200 MG CAPSULE PO (08:50)
[2023-05-06] MEDS: allopurinoL 300 MG TABLET BY MOUTH (08:50)
[2023-05-06] MEDS: SENNA/DOCUSATE SODIUM TABLET 2 TAB PO ×2 (08:50→17:34)
[2023-05-06] MEDS: CYANOCOBALAMIN 1,000 MCG TABLET 1000 MCG PO (08:50)
[2023-05-06] MEDS: FAMOTIDINE 20 MG TABLET PO ×2 (08:50→20:23)
[2023-05-06] MEDS: lisinopriL 5 MG TABLET PO (08:50)
[2023-05-06] MEDS: polyethylene glycoL 3350 17 GM POWD.PACK PO (08:51)
--- NOTE | 2023-05-06 11:28 | PM.IMPN ---
Progress Note: A&P Assessment and Plan (1) Left displaced femoral neck fracture: Code(s): S72.002A - Fracture of unspecified part of neck of left femur, initial encounter for closed fracture Status: Acute (2) BPH (benign prostatic hyperplasia): Qualifiers: Lower urinary tract symptom presence: symptoms present Lower urinary tract symptom detail: urinary frequency Qualified Code(s): N40.1 - Benign prostatic hyperplasia with lower urinary tract symptoms; R35.0 - Frequency of micturition Code(s): N40.0 - Benign prostatic hyperplasia without lower urinary tract symptoms Status: Acute (3) Coronary artery disease: Qualifiers: Coronary Disease-Associated Artery/Lesion type: [place] artery [place] vs. transplanted heart: [place] heart Associated angina: without angina Qualified Code(s): I25.10 - Atherosclerotic heart disease of [place] coronary artery without angina pectoris Code(s): I25.10 - Atherosclerotic heart disease of [place] coronary artery without angina pectoris Status: Acute (4) Essential hypertension: Code(s): I10 - Essential (primary) hypertension Status: Acute Plan Patient has a displaced left femoral neck fracture. Status post open reduction internal fixation. PT OT consulted I will continue the patient's home medications May need rehab. PT OT consult. Pending placement Subjective Date/time seen: 05/06/23 11:28 Interval history: Reports generalized weakness and some dizziness Review of Systems Review of Systems: 12 systems were reviewed with pertinent positives and negatives per HPI. Except as documented in the HPI, all other systems were reviewed and are negative. Exam Narrative: Weight 82.5 kg BMI 26.9 Const: Other: No acute distress, well-developed well-nourished, appears younger than stated age HENMT: Other: Good dentition, mucous membranes are tacky, no oral pharyngeal erythema, lips are dry and peeling Eyes: Other: Pupils are equal and reactive, no scleral icterus, no conjunctival pallor Neck: Other: No JVD, no lymphadenopathy, trachea midline Resp: Other: Clear to auscultation bilaterally, no increased work of breathing Cardio: Other: Regular rate, regular rhythm, 2+ bilateral radial pedal pulses, no murmur GI: Other: Soft, nontender, nondistended, hyperactive bowel sounds, no organomegaly Skin: Other: Skin tear to left upper arm with moderate amount of bleeding see please see nursing documentation for measurements is no more than 2 cm by 8 cm in length Neuro: Other: Alert oriented x4, speech is clear, no facial asymmetry, no localizing neurologic deficits noted during casual conversation Extrem: Other: Left lower extremity is externally rotated and shortened, extremity is neurovascularly intact distally Psych: Other: Appropriate mood and affect, pleasant and cooperative, judgment and insight intact Objective Data Vital Signs Vital Signs: Vital Signs - 24 hr 05/05/23 14:00 05/05/23 20:08 05/05/23 20:00 Temperature 97.8 F 98.5 F Pulse Rate 100 101 H 101 H Respiratory Rate 14 17 17 Blood Pressure 140/68 125/64 Pulse Oximetry 93 94 94 Oxygen Delivery Room Air 05/05/23 21:10 05/06/23 05:32 05/06/23 08:47 Temperature 98.6 F Pulse Rate 100 100 Respiratory Rate 17 20 Blood Pressure 121/58 L 140/64 Pulse Oximetry 94 91 Oxygen Delivery Room Air 05/06/23 08:50 Temperature Pulse Rate 100 Respiratory Rate 20 Blood Pressure Pulse Oximetry 91 Oxygen Delivery Room Air Intake/Output Intake/Output: Intake & Output 05/03/23 05/04/23 05/05/23 05/06/23 23:59 23:59 23:59 23:59 Intake Total 1030 / 1030 2110 / 2110 2590 / 2590 490 / 490 Output Total 300 / 300 731 / 731 300 / 300 Balance 730 / 730 1379 / 1379 2590 / 2590 190 / 190 Meds/Results Medications: Active Medications Generic Name Dose
[2023-05-06] MEDS: ARTIFICIAL TEARS OPHTH SOLN 15 ML BOTTLE 1 DROP EACH EYE (12:07)
--- NOTE | 2023-05-06 16:57 | PM.PNORT ---
Progress Note: A&P Assessment and Plan (1) Left displaced femoral neck fracture: Code(s): S72.002A - Fracture of unspecified part of neck of left femur, initial encounter for closed fracture Status: Acute Plan pod 2 doing well. he will most likely require rehab for postoperative care. we will observe him for now due to his syncopal episode. Subjective Subjective Date/Time Seen: 05/06/23 16:57 Interval history: pod 2 doing well. having slow progress with pt. he had a syncopal episode this morning. he had no cp or sob. he denies and calf pain or thigh pain Exam Extrem: Other: vss afebrile dressing dry nv intact neg homans sign, calf thigh non tender Objective Data Vital Signs Vital Signs: Vital Signs - 24 hr 05/05/23 20:08 05/05/23 20:00 05/05/23 21:10 Temperature 36.9 C Pulse Rate 101 H 101 H Respiratory Rate 17 17 Blood Pressure 125/64 Pulse Oximetry 94 94 94 Oxygen Delivery Room Air Room Air 05/06/23 05:32 05/06/23 08:47 05/06/23 08:50 Temperature 37.0 C Pulse Rate 100 100 100 Respiratory Rate 17 20 20 Blood Pressure 121/58 L 140/64 Pulse Oximetry 91 91 Oxygen Delivery Room Air 05/06/23 14:00 05/06/23 15:56 05/06/23 15:57 Temperature 36.4 C Pulse Rate 102 H Respiratory Rate 16 Blood Pressure 122/60 119/60 103/60 Pulse Oximetry 94 Oxygen Delivery Intake/Output Intake/Output: Intake & Output 05/03/23 05/04/23 05/05/23 05/06/23 23:59 23:59 23:59 23:59 Intake Total 1030 2110 2590 850 Output Total 300 731 300 Balance 730 1379 2590 550 Meds/Results Medications: Active Medications Generic Name Dose Route Start Last Admin Trade Name Freq PRN Reason Stop Dose Admin Acetaminophen 650 mg 05/04/23 16:27 Acetaminophen 325 Mg Tablet PO Q6H PRN Mild Pain (1-3) or Fever Hydrocodone Bitart/Acetaminophen 1 tab 05/04/23 16:27 05/05/23 20:06 Hydrocodone/Acetaminophen (*Crx) 7.5-325 Mg Tablet PO 1 tab Q3H PRN Administration Pain Rated 4-6 Hydrocodone Bitart/Acetaminophen 2 tab 05/04/23 16:27 Hydrocodone/Acetaminophen (*Crx) 5-325 Mg Tablet PO Q6H PRN Pain Rated 7-10 Allopurinol 300 mg 05/02/23 08:00 05/06/23 08:50 Allopurinol 300 Mg Tablet BY MOUTH 300 mg DAILY@0800 JESSE Administration Artificial Tears 1 drop 05/03/23 15:23 05/06/23 12:07 Artificial Tears Ophth Soln 15 Ml Bottle EACH EYE 1 drop QID PRN Administration Dry Eye(s) Aspirin 81 mg 05/02/23 08:00 05/06/23 08:50 Aspirin 81 Mg Chewable Tablet PO 81 mg DAILY@0800 JESSE Administration Atorvastatin Calcium 40 mg 05/01/23 22:15 05/05/23 17:03 Atorvastatin 40 Mg Tablet PO 40 mg QPM JESSE Administration Celecoxib 200 mg 05/05/23 08:00 05/06/23 08:50 Celecoxib 200 Mg Capsule PO 200 mg DAILY@0800 JESSE Administration Clopidogrel Bisulfate 75 mg 05/05/23 09:00 05/06/23 08:50 Clopidogrel Bisulfate 75 Mg Tablet PO 06/04/23 08:59 75 mg DAILY JESSE Administration Cyanocobalamin 1,000 mcg 05/05/23 09:00 05/06/23 08:50 Cyanocobalamin 1,000 Mcg Tablet PO 06/04/23 08:59 1,000 mcg DAILY JESSE Administration Diazepam 5 mg 05/04/23 16:27 Diazepam (*Crx) 5 Mg Tablet PO Q8H PRN Muscle Spasm Famotidine 20 mg 05/04/23 21:00 05/06/23 08:50 Famotidine 20 Mg Tablet PO 20 mg Q12HR JESSE Administration Hydroxyzine Pamoate 50 mg 05/04/23 16:27 Hydroxyzine Pamoate 25 Mg Capsule PO Q4H PRN Itching Lisinopril 5 mg 05/02/23 09:00 05/06/23 08:50 Lisinopril 5 Mg Tablet PO 5 mg QAM JESSE Administration Morphine Sulfate 4 mg 05/01/23 22:07 05/02/23 13:16 Morphine Sulfate (*Crx) 4 Mg/Ml Inj IV PUSH 4 mg Q4H PRN Administration Pain Rated 7-10 Multivitamins/Minerals 1 tablet 05/02/23 09:00 09/14/23 08:50 Opti-Gen Tab PO 1 tablet BID JESSE Administration Naloxone HCl 0.1 mg 05/04/23 16:27 Naloxone Hcl 0.4 Mg/Ml Via
[2023-05-06] MEDS: ATORVASTATIN 40 MG TABLET PO (17:34)
[2023-05-06] MEDS: TAMSULOSIN HCL 0.4 MG CAPSULE PO (17:34)
[2023-05-07 03:50] VITALS: BP 129/70; PULSE 94; RESP 18; TEMP 36.3; O2SAT 96
[2023-05-07] MEDS: allopurinoL 300 MG TABLET BY MOUTH (08:52)
[2023-05-07] MEDS: CELECOXIB 200 MG CAPSULE PO (08:52)
[2023-05-07] MEDS: ARTIFICIAL TEARS OPHTH SOLN 15 ML BOTTLE 1 DROP EACH EYE (08:52)
[2023-05-07] MEDS: SENNA/DOCUSATE SODIUM TABLET 2 TAB PO (08:52)
[2023-05-07] MEDS: FAMOTIDINE 20 MG TABLET PO (08:52)
[2023-05-07] MEDS: ASPIRIN 81 MG CHEWABLE TABLET PO (08:52)
[2023-05-07] MEDS: CYANOCOBALAMIN 1,000 MCG TABLET 1000 MCG PO (08:52)
[2023-05-07] MEDS: CLOPIDOGREL BISULFATE 75 MG TABLET PO (08:53)
[2023-05-07] MEDS: polyethylene glycoL 3350 17 GM POWD.PACK PO (08:53)
[2023-05-07] MEDS: OPTI-GEN TAB 1 TABLET PO (08:53)
[2023-05-07] MEDS: lisinopriL 5 MG TABLET PO (08:53)
--- NOTE | 2023-05-07 10:33 | PCNWS ---
Weekly nutritional screen. Patient is tolerating current diet with adequate intake. No weight loss reported. No nutritional needs at this time.
--- NOTE | 2023-05-07 13:19 | PM.IMPN ---
Progress Note: A&P Assessment and Plan (1) Left displaced femoral neck fracture: Code(s): S72.002A - Fracture of unspecified part of neck of left femur, initial encounter for closed fracture Status: Acute (2) BPH (benign prostatic hyperplasia): Qualifiers: Lower urinary tract symptom presence: symptoms present Lower urinary tract symptom detail: urinary frequency Qualified Code(s): N40.1 - Benign prostatic hyperplasia with lower urinary tract symptoms; R35.0 - Frequency of micturition Code(s): N40.0 - Benign prostatic hyperplasia without lower urinary tract symptoms Status: Acute (3) Coronary artery disease: Qualifiers: Coronary Disease-Associated Artery/Lesion type: [place] artery [place] vs. transplanted heart: [place] heart Associated angina: without angina Qualified Code(s): I25.10 - Atherosclerotic heart disease of [place] coronary artery without angina pectoris Code(s): I25.10 - Atherosclerotic heart disease of [place] coronary artery without angina pectoris Status: Acute (4) Essential hypertension: Code(s): I10 - Essential (primary) hypertension Status: Acute Plan displaced left femoral neck fracture. Status post open reduction internal fixation. PT OT consulted continue the patient's home medications May need rehab. PT OT consult. Pending placement Subjective Date/time seen: 05/07/23 13:19 Interval history: no complaints Review of Systems Review of Systems: 12 systems were reviewed with pertinent positives and negatives per HPI. Except as documented in the HPI, all other systems were reviewed and are negative. Exam Extrem: Other: vss afebrile dressing dry nv intact neg homans sign, calf thigh non tender Objective Data Vital Signs Vital Signs: Vital Signs - 24 hr 05/06/23 14:00 05/06/23 15:56 05/06/23 15:57 Temperature 97.6 F Pulse Rate 102 H Respiratory Rate 16 Blood Pressure 122/60 119/60 103/60 Pulse Oximetry 94 05/06/23 19:54 05/07/23 03:50 Temperature 97.5 F L 97.4 F L Pulse Rate 111 H 94 Respiratory Rate 18 18 Blood Pressure 147/66 H 129/70 Pulse Oximetry 96 96 Intake/Output Intake/Output: Intake & Output 05/04/23 05/05/23 05/06/23 05/07/23 23:59 23:59 23:59 23:59 Intake Total 2110 / 2110 2590 / 2590 1959 / 1959 782 / 782 Output Total 731 / 731 300 / 300 400 / 400 Balance 1379 / 1379 2590 / 2590 1660 / 1660 382 / 382 Meds/Results Medications: Active Medications Generic Name Dose Route Start Last Admin Trade Name Freq PRN Reason Stop Dose Admin Acetaminophen 650 mg 05/04/23 16:27 Acetaminophen 325 Mg Tablet PO Q6H PRN Mild Pain (1-3) or Fever Hydrocodone Bitart/Acetaminophen 1 tab 05/04/23 16:27 05/05/23 20:06 Hydrocodone/Acetaminophen (*Crx) 7.5-325 Mg Tablet PO 1 tab Q3H PRN Administration Pain Rated 4-6 Hydrocodone Bitart/Acetaminophen 2 tab 05/04/23 16:27 Hydrocodone/Acetaminophen (*Crx) 5-325 Mg Tablet PO Q6H PRN Pain Rated 7-10 Allopurinol 300 mg 05/02/23 08:00 05/07/23 08:52 Allopurinol 300 Mg Tablet BY MOUTH 300 mg DAILY@0800 JESSE Administration Artificial Tears 1 drop 05/03/23 15:23 05/07/23 08:52 Artificial Tears Ophth Soln 15 Ml Bottle EACH EYE 1 drop QID PRN Administration Dry Eye(s) Aspirin 81 mg 05/02/23 08:00 05/07/23 08:52 Aspirin 81 Mg Chewable Tablet PO 81 mg DAILY@0800 JESSE Administration Atorvastatin Calcium 40 mg 05/01/23 22:15 05/06/23 17:34 Atorvastatin 40 Mg Tablet PO 40 mg QPM JESSE Administration Celecoxib 200 mg 05/05/23 08:00 05/07/23 08:52 Celecoxib 200 Mg Capsule PO 200 mg DAILY@0800 JESSE Administration Clopidogrel Bisulfate 75 mg 05/05/23 09:00 05/07/23 08:53 Clopidogrel Bisulfate 75 Mg Tablet PO 06/04/23 08:59 75 mg DAILY JESSE Administration Cyanocobalamin 1,000 mcg 05/05/23 09:00 05/07/23 08:52 Cyanocobalam
[2023-05-07 14:00] VITALS: BP 131/71; PULSE 100; RESP 19; TEMP 36.4; O2SAT 98
--- NOTE | 2023-05-07 14:48 | PM.PNORT ---
Progress Note: A&P Assessment and Plan (1) Left displaced femoral neck fracture: Code(s): S72.002A - Fracture of unspecified part of neck of left femur, initial encounter for closed fracture Status: Acute Plan POD 3. OK TO DC TO ACUTE REHAB. HE WILL F/U IN 6 WEEKS WITH ORTHOPEDICS. Subjective Subjective Date/Time Seen: 05/07/23 14:48 Interval history: pod 3 doing well. he is schedule d for dc to acute rehab. he continues to require pt. no calf pain Exam Extrem: Other: VSS AFEBRILE DRESSING DRY NV INTACT NEG HOMANS SIGN, CALF AND THIGH SOFT NON TENDER Objective Data Vital Signs Vital Signs: Vital Signs - 24 hr 05/06/23 15:56 05/06/23 15:57 05/06/23 19:54 Temperature 36.4 C L Pulse Rate 111 H Respiratory Rate 18 Blood Pressure 119/60 103/60 147/66 H Pulse Oximetry 96 05/07/23 03:50 05/07/23 14:00 Temperature 36.3 C L 36.4 C Pulse Rate 94 100 Respiratory Rate 18 19 Blood Pressure 129/70 131/71 Pulse Oximetry 96 98 Intake/Output Intake/Output: Intake & Output 05/04/23 05/05/23 05/06/23 05/07/23 23:59 23:59 23:59 23:59 Intake Total 2110 2590 1960 782 Output Total 731 300 400 Balance 1379 2590 1660 382 Meds/Results Medications: Active Medications Generic Name Dose Route Start Last Admin Trade Name Freq PRN Reason Stop Dose Admin Acetaminophen 650 mg 05/04/23 16:27 Acetaminophen 325 Mg Tablet PO Q6H PRN Mild Pain (1-3) or Fever Hydrocodone Bitart/Acetaminophen 1 tab 05/04/23 16:27 05/05/23 20:06 Hydrocodone/Acetaminophen (*Crx) 7.5-325 Mg Tablet PO 1 tab Q3H PRN Administration Pain Rated 4-6 Hydrocodone Bitart/Acetaminophen 2 tab 05/04/23 16:27 Hydrocodone/Acetaminophen (*Crx) 5-325 Mg Tablet PO Q6H PRN Pain Rated 7-10 Allopurinol 300 mg 05/02/23 08:00 05/07/23 08:52 Allopurinol 300 Mg Tablet BY MOUTH 300 mg DAILY@0800 JESSE Administration Artificial Tears 1 drop 05/03/23 15:23 05/07/23 08:52 Artificial Tears Ophth Soln 15 Ml Bottle EACH EYE 1 drop QID PRN Administration Dry Eye(s) Aspirin 81 mg 05/02/23 08:00 05/07/23 08:52 Aspirin 81 Mg Chewable Tablet PO 81 mg DAILY@0800 JESSE Administration Atorvastatin Calcium 40 mg 05/01/23 22:15 05/06/23 17:34 Atorvastatin 40 Mg Tablet PO 40 mg QPM JESSE Administration Celecoxib 200 mg 05/05/23 08:00 05/07/23 08:52 Celecoxib 200 Mg Capsule PO 200 mg DAILY@0800 JESSE Administration Clopidogrel Bisulfate 75 mg 05/05/23 09:00 05/07/23 08:53 Clopidogrel Bisulfate 75 Mg Tablet PO 06/04/23 08:59 75 mg DAILY JESSE Administration Cyanocobalamin 1,000 mcg 05/05/23 09:00 05/07/23 08:52 Cyanocobalamin 1,000 Mcg Tablet PO 06/04/23 08:59 1,000 mcg DAILY JESSE Administration Diazepam 5 mg 05/04/23 16:27 Diazepam (*Crx) 5 Mg Tablet PO Q8H PRN Muscle Spasm Famotidine 20 mg 05/04/23 21:00 05/07/23 08:52 Famotidine 20 Mg Tablet PO 20 mg Q12HR JESSE Administration Hydroxyzine Pamoate 50 mg 05/04/23 16:27 Hydroxyzine Pamoate 25 Mg Capsule PO Q4H PRN Itching Lisinopril 5 mg 05/02/23 09:00 05/07/23 08:53 Lisinopril 5 Mg Tablet PO 5 mg QAM JESSE Administration Morphine Sulfate 4 mg 05/01/23 22:07 05/02/23 13:16 Morphine Sulfate (*Crx) 4 Mg/Ml Inj IV PUSH 4 mg Q4H PRN Administration Pain Rated 7-10 Multivitamins/Minerals 1 tablet 05/02/23 09:00 05/07/23 08:53 Opti-Gen Tab PO 1 tablet BID JESSE Administration Naloxone HCl 0.1 mg 05/04/23 16:27 Naloxone Hcl 0.4 Mg/Ml Vial IV PUSH Q2M PRN Opiate Reversal Ondansetron HCl 4 mg 05/01/23 22:07 Ondansetron Inj 4 Mg/2 Ml Vial IV PUSH Q6H PRN Nausea And Vomiting Ondansetron HCl 4 mg 05/04/23 16:27 Ondansetron Inj 4 Mg/2 Ml Vial IV PUSH Q4H PRN Nausea And Vomiting Oxycodone/Acetaminophen 0 tablet 05/02/23 13:43 05/03/23 11:31 Oxycodone/A
--- NOTE | 2023-05-08 11:13 | P.DS_ITS ---
DS: Admitting Diagnosis Discharge Date 05/07/23 Admitting Diagnosis Femoral neck fracture DS: Discharge Diagnosis Discharge Diagnosis (1) Left displaced femoral neck fracture: Code(s): S72.002A - Fracture of unspecified part of neck of left femur, initial encounter for closed fracture Status: Acute DS: Summary Hospital Course Hospital Course: Patient admitted with femoral neck fracture. Orthopedic surgery were consulted. Patient underwent open reduction and internal fixation. Postoperative course was uneventful. PT and OT were consulted and patient was discharged to rehab per their recommendation Time Spent with Patient Time attestation: Total time spent providing and/or coordinating discharge services: Discharge Plan Discharge Consulting providers: Toi Manzo Discharging Clinician: Osmin Low Anticipated Discharge Date/Time: 05/07/23 11:05 Patient Disposition: SNF Activity: no preference Diet: heart healthy Discharge Instructions: Postoperative Hip Fracture Instructions Dr. Toi Manzo [phone] * Dressing to be changed daily with an island dressing beginning on post op day #2. May stop dressing changes at post op day #14. No sutures/savanna will need to be removed. Can allow Dermabond to fall off naturally. * Weight bearing: Weight bearing as tolerated. * You may shower with your dressing but do not submerge in a bath tub. * Do not drive or operate machinery until you are released by your surgeon. * Do not walk without a walker for any reason until you are released by your surgeon. * Continue home blood thinners, no additional medications indicated. * Continue to apply ice to the hip intermittently for additional pain relief. Protect your skin with a towel or pillow case. * Continue to follow strict hip fracture precautions. * Please contact our office with any questions/concerns regarding your hip at [phone]. * Follow up appointment instructions indicated below. Patient Instructions: Pain Management (DC) Stand Alone Forms: General Discharge Information Follow-up/Referrals: Toi Manzo MD [Physician] - 06/17/23 1:45 pm Tal,Colton Myles MD [Primary Care Provider] - Discharge Medications: Continued Adult Low Dose Aspirin 81 mg PO DAILY B12 1,000 mcg PO DAILY PreserVision AREDS-2 1 tablet PO BID allopurinol 300 mg PO DAILY atorvastatin 40 mg PO QPM clopidogrel 75 mg PO DAILY lisinopril 5 mg PO DAILY tamsulosin 0.4 mg PO QPM Systane Ultra 0.4-0.3 % Drops 1 drp EACH EYE BID Date of admission: 05/01/23 19:48 Primary Care Provider: Tal,Colton Myles Admitting Provider: Angelica Reich Attending physician on admission: Osmin Low Condition: Stable
== END 2023-05-07 16:00 | DRG 522 ==
LOC: ANHED 18:57 → ANH2MED 20:23
PROVIDERS: Orthopaedic Surgery; Admitting Provider Internal Medicine; Emergency Provider Preventive Medicine Aerospace Medicine; PCP Family Medicine; Visit Provider Hospitalist
PROC: 0SRS01A Replacement of Left Hip Joint, Femoral Surface with Metal Synthetic Substitute, Uncemented, Open Approach (ICD-10-PCS; CPT 27125; principal; 2023-05-04 12:00)
DX: S72.002A Fracture of unspecified part of neck of left femur, initial encounter for closed fracture (principal); I48.91 Unspecified atrial fibrillation; I25.10 Atherosclerotic heart disease of native coronary artery without angina pectoris; I10 Essential (primary) hypertension; R55 Syncope and collapse; W18.09XA Striking against other object with subsequent fall, initial encounter; N40.1 Benign prostatic hyperplasia with lower urinary tract symptoms; R35.0 Frequency of micturition; Z96.653 Presence of artificial knee joint, bilateral; Z87.442 Personal history of urinary calculi; Z98.42 Cataract extraction status, left eye; Z98.41 Cataract extraction status, right eye; Z96.1 Presence of intraocular lens; Z79.02 Long term (current) use of antithrombotics/antiplatelets
CPT/HCPCS: 36415; 71045; 73502; 80048; 80053; 82948; 85025; 85610; 85730; 86850; 86900; 86901; 93005; 96374; 97110; 97161; 97165; 97530; 97535; 99285; A9270; C1713; C1776; J0171; J0690; J1170; J2270; J2405; J2704; J2795; J3010; J7030; J7120